=== PATIENT | female | born 1960 | race African-American/Black ===

== ENCOUNTER 2016-08-15 12:40 | Emergency (ER) | payer OTHER ==
--- NOTE | ~2016-08-15 | CR72 ---
[facility] A Service of [facility] RADIOLOGY TEXT RESULTS PATIENT: ELIESER DIMAS LOCATION: [facility] : 60 UNIT #: [id number] AGE: [address]: Orlando Nicholas MD SEX: F ORDER DR: [id number] [facility] [address] [place], [place] [address] [id number] E MR#: [id number] Acc #: [id number] NAME: ELIESER DIMAS : 1960 SEX: F STUDY DATE/TIME: UNIT: SHAI ROOM: STUDY DESCRIPTION: CR Chest Single View Portable Attending Physician: Orlando Nicholas M.D. Ordering Physician: Sha Daniels M.D. Primary Care Physician: [facility] MEDICAL IMAGING REPORT This report is preliminary unless electronic signature is present EXAM Chest portable 08/15/2016 1250 hours HISTORY 55-year-old woman with 2-day history of chest pain, shortness of air and pain in throat. COMPARISON 06/25/2015 FINDINGS Single upright portable view of the chest demonstrates normal cardiac, mediastinal and hilar contours. The lungs are well expanded and clear. There is no pleural effusion, pneumothorax or dilatation of the esophagus seen. IMPRESSION Normal upright portable chest. Dictated by... Rocio Paris M.D. THIS IS AN ELECTRONICALLY VERIFIED REPORT Rocio Paris M.D. at 08/15/2016 2:31 PM EVAN/rylee TD: 08/15/2016 13:47 JOB #: [id number] MEDICAL IMAGING REPORT Page 1 of 1 COPY
--- NOTE | ~2016-08-15 | EKG ---
PATIENT: ELIESER DIMAS UNIT #: [id number] Ventricular Rate: 74 BPM Atrial Rate: 74 BPM P-R Interval: 168 ms QRS Duration: 72 ms Q-T Interval: 386 ms QTC Calculation(Bezet): 428 ms P [place]: 48 degrees Calculated R [place]: 24 degrees Calculated T [place]: 36 degrees Diagnosis Line: Normal sinus rhythm with sinus arrhythmia Diagnosis Line: Possible Left atrial enlargement Diagnosis Line: Borderline ECG Diagnosis Line: When compared with ECG of 25-JUN-2015 21:29, Diagnosis Line: Nonspecific T wave abnormality, improved in Diagnosis Line: Anterior leads Diagnosis Line: QT has shortened Diagnosis Line: Confirmed by EMMANUEL RODRIGUES MD ([id number]) on 08/15/2016 Diagnosis Line: 11:37:55 PM INTERPRETING MD: RAVI JOHNSON
[~2016-08-15 12:40] MED LIST: ALBUTEROL17 GM INH; AMOXICILLIN PO; AUGMENTIN PO; AZITHROMYCIN250 MG PO; BACTRIM DS TABL1 TA1 PO; BENADRYL25 M1 PO; CENTRUM PO; CIPRO PO; DICYCLOMINE HCL20 MG PO; EC-NAPROSYN500 MG PO; ELIMITE60 GM TOP; HCTZ PO; KEFLEX PO; LEVAQUIN PO; MACROBID100 MG PO; MEDROL PO; MUCINEX DM1 TAB.SR . PO; NAPROSYN500 MG PO; NAPROXEN PO; NASONEX17 GM; NO MEDICATIONS; PHENERGAN25 M1 PO; PREDNISONE PO; PROTONIX PO; TORADOL10 MG PO; TYLOX 5/500 CAP1 CAP PO; ULTRAM PO; ZESTORETIC 20/11 TAB PO; ZYRTEC PO
[2016-08-15 12:48] LABS: BASOPHIL% 0.8 % (0-2.5); EOSINOPHIL# 0.1 X10e3 (0-0.7); HEMATOCRIT 37.2 % (35.0-45.0); HEMOGLOBIN 12.6 gm/dL (12.0-16.0); LYMPHOCYTE# 1.3 X10e3 (1.0-3.5); LYMPHOCYTE% 29.4 % (17.0-45.0); MEAN CELL VOLUME 90.3 FL (83-96); MEAN CORPUSCULAR HEMOGLOBIN 30.6 PG (28-34); MEAN CORPUSCULAR HGB CONC 33.9 g/dL (30-36); MEAN PLATELET VOLUME 8.1 FL (6.5-11.5); MONOCYTE# 0.3 X10e3 (0-1.0); MONOCYTE% 6.6 % (3.0-12.0); NEUTROPHIL# 2.8 X10e3 (1.5-7.1); NEUTROPHIL% 60.2 % (40-75); PLATELET COUNT 255 X10e3 (140-420); RED BLOOD COUNT 4.12 X10e (3.90-5.30); RED CELL DISTRIBUTION WIDTH 13.8 % (11.0-15.5); WHITE BLOOD COUNT 4.6 X10e3 (4.0-10.5)
[2016-08-15 12:54] LABS: DIFF IND NO
[2016-08-15 13:20] LABS: ALBUMIN SERUM 4.1 g/dL (3.5-5.0); ALKALINE PHOSPHATASE 70 U/L (32-92); ALT (SGPT) 17 U/L (10-40); AST (SGOT) 17 U/L (10-42); BILIRUBIN,TOTAL 0.7 mg/dL (0.2-2.0); BLOOD UREA NITROGEN 15 mg/dL (9-23); CALCIUM SERUM 9.3 mg/dL (8.4-10.2); CARBON DIOXIDE 26 mmol/L (22-31); CHLORIDE 107 mmol/L (100-111); CREATININE SERUM 0.5 mg/dL (0.6-1.4); GLOM FILT RATE Estimated 126.3 mL/min (>60); GLUCOSE FASTING 89 mg/dL (70-110); POTASSIUM 3.5 mmol/L (3.5-5.1); PROTEIN TOTAL SERUM 7.4 g/dL (6.0-8.3); SODIUM 140 mmol/L (135-145)
[2016-08-15 13:21] LABS: BILIRUBIN, DIRECT <0.1 mg/dL (0.0-0.2); BILIRUBIN,INDIRECT 0.6 mg/dL (0.0-0.9)
[2016-08-15 13:27] LABS: POC - CKMB 1.5 ng/mL (0.0-7.9); POC - TROPONIN <0.05 ng/mL (<=0.05)
[2016-08-15 15:37] LABS: POC - CKMB 1.3 ng/mL (0.0-7.9); POC - TROPONIN <0.05 ng/mL (<=0.05)
== END 2016-08-15 17:48 | disposition home or self-care (01) ==
LOC: CED 12:40
PROVIDERS: Emergency Medicine
DX: R07.9 Chest pain, unspecified (principal); J02.9 Acute pharyngitis, unspecified; K21.9 Gastro-esophageal reflux disease without esophagitis; Z90.710 Acquired absence of both cervix and uterus; Z88.0 Allergy status to penicillin
CPT/HCPCS: 36415; 71010; 80048; 80076; 82553; 84484; 85025; 93005; 99284; J1885

== ENCOUNTER 2017-01-10 18:50 | Emergency (ER) | payer OTHER ==
[~2017-01-10] VITALS: Ht 160 cm; Wt 74.8 kg
== END 2017-01-10 20:23 | disposition home or self-care (01) ==
LOC: CFTX 18:50 → CED 18:50 → CFTX 20:04
DX: M54.2 Cervicalgia (principal); M54.6 Pain in thoracic spine; K21.9 Gastro-esophageal reflux disease without esophagitis; Z80.0 Family history of malignant neoplasm of digestive organs
CPT/HCPCS: 99283